=== PATIENT | female | born 1965 | race Caucasian/White ===

== ENCOUNTER 2019-09-05 12:22 | Emergency (ER) | payer BC ==
[2019-09-05 12:37] VITALS: BP 149/92
--- NOTE | 2019-09-05 12:48 | UC ---
Throat Pain/Nasal Ritesh HPI - HPI Summary HPI Summary: sinus pain / pressure x 3 weeks nasal congestion / yellow / green nasal discharge pnd, no fever, no chills, no body aches denies any cough - History of Current Complaint Chief Complaint: UCGeneralIllness Stated Complaint: HEAD COLD Time Seen by Provider: 09/05/19 12:36 Hx Obtained From: Patient ?: No Onset/Duration: Gradual Onset, Lasting Weeks - 3, Still Present Severity: Moderate Pain Intensity: 10 Cough: None Associated Signs & Symptoms: Positive: Sinus Discomfort, Nasal Discharge. Negative: Hoarseness, Fever - Allergies/Home Medications Allergies/Adverse Reactions: Allergies Allergy/AdvReac Type Severity Reaction Status Date / Time No Known Allergies Allergy Verified 09/05/19 12:33 Home Medications: Home Medications Cetirizine* [ZyrTEC 10 MG TAB*] 1 tab PO DAILY 09/05/19 [History Confirmed 09/05] PMH/Surg Hx/FS Hx/Imm Hx Endocrine History: Thyroid Disease - Surgical History Surgical History: Yes Surgery Procedure, Year, and Place: GALL BLADDER REMOVAL. FEBRUARY 2015, COLECTOMY - Family History Known Family History: Negative: Diabetes - Social History Alcohol Use: Occasionally Alcohol Amount: 1-2 PER WEEK Substance Use Type: None Smoking Status (MU): Never Smoked Tobacco - Immunization History Most Recent Influenza Vaccination: 2013 Most Recent Tetanus Shot: ? UNSURE IF UP TO DATE Most Recent Pneumonia Vaccination: HAS NOT HAD Review of Systems All Other Systems Reviewed And Are Negative: Yes Constitutional: Positive: Negative Skin: Positive: Negative Eyes: Positive: Negative ENT: Positive: Nasal Discharge, Sinus Congestion, Sinus Pain/Tenderness. Negative: Sore Throat, Ear Ache Respiratory: Positive: Negative. Negative: Cough Is Patient Immunocompromised?: No Physical Exam Triage Information Reviewed: Yes Appearance: Well-Appearing, No Pain Distress, Well-Nourished Vital Signs: Initial Vital Signs Temp 98.3 F 09/05/19 12:33 Pulse 94 09/05/19 12:33 Resp 16 09/05/19 12:33 BP 149/92 09/05/19 12:33 Pulse Ox 100 09/05/19 12:33 Vital Signs Reviewed: Yes Eye Exam: Normal Eyes: Positive: Conjunctiva Clear ENT: Positive: Normal ENT inspection, Hearing grossly normal, Pharyngeal erythema, Nasal congestion, Nasal drainage, TMs normal, Sinus tenderness. Negative: TM bulging, TM dull, TM red Neck exam: Normal Neck: Positive: Supple, Nontender, No Lymphadenopathy Respiratory: Positive: Chest non-tender, Lungs clear, Normal breath sounds Cardiovascular: Positive: RRR, No Murmur, Pulses Normal Skin Exam: Normal Throat Pain/Nasal Course/Dx - Course Course Of Treatment: elevated bp : monitor your bp daily follow up with your pcp - Differential Dx/Diagnosis Provider Diagnosis: Sinusitis, Elevated BP without diagnosis of hypertension Discharge ED - Sign-Out/Discharge Documenting (check all that apply): Patient Departure All imaging exams completed and their final reports reviewed: No Studies - Discharge Plan Condition: Stable Disposition: HOME Prescriptions: Amoxicillin/Clavulanate TAB* [Augmentin TAB 875*] 875 mg PO BID #20 tab Patient Education Materials: Sinusitis (ED) Referrals: Elida Up MD [Primary Care Provider] - If Needed - Billing Disposition and Condition Condition: STABLE Disposition: Home
== END 2019-09-05 12:52 | disposition home or self-care (01) ==
LOC: UCCORT 12:22
DX: J32.9 Chronic sinusitis, unspecified (principal); R03.0 Elevated blood-pressure reading, without diagnosis of hypertension
CPT/HCPCS: 99212; G0463